=== PATIENT | female | born 1980 | race African-American/Black ===

== ENCOUNTER 2017-11-07 08:48 | Emergency (ER) | payer OTHER ==
[~2017-11-07] VITALS: Ht 165.1 cm; Wt 127.0 kg
[~2017-11-07 08:48] MED LIST: EXCEDRIN CAPLE1 EACH PO; IBUPROFEN 600600 M1 PO
[2017-11-07] MEDS ORDERED: NORCO 5-325 TA1 EACH PO (09:36)
[2017-11-07] MEDS ORDERED: IBUPROFEN 600600 M1 PO (09:36)
[2017-11-07 09:56] VITALS: BP 135/75
[2018-03-27] MEDS ORDERED: NEURONTIN600 MG PO (21:06)
[2018-03-27] MEDS ORDERED: NORCO 5-325 TA1 EACH PO (21:59)
[2018-03-27] MEDS ORDERED: NORFLEX100 MG PO (22:26)
== END 2017-11-07 09:57 | disposition home or self-care (01) ==
LOC: ER 08:48
DX: M25.571 Pain in right ankle and joints of right foot (principal); R51 Headache; K21.9 Gastro-esophageal reflux disease without esophagitis; W18.2XXA Fall in (into) shower or empty bathtub, initial encounter; Y93.89 Activity, other specified; Y92.89 Other specified places as the place of occurrence of the external cause; Y99.8 Other external cause status

== ENCOUNTER 2018-07-15 06:34 | Emergency (ER) | payer OTHER ==
[~2018-07-15] VITALS: Ht 165.1 cm; Wt 131.5 kg
[~2018-07-15 06:34] MED LIST changes: +NEURONTIN600 MG PO; +NORCO 5-325 TA1 EACH PO; +NORFLEX100 MG PO
[2018-07-15 07:14] LABS: ABSOLUTE NEUTROPHILS 2.3 thou/uL (1.4-8.2); BASOPHILS 0.6 % (0.0-2.0); EOSINOPHILS 2.5 % (0.0-3.0); HEMATOCRIT 34.3 % (37.0-47.0); HEMOGLOBIN 11.1 gm/dL (12.0-15.0); LYMPHOCYTES 40.3 % (24.0-44.0); MCH 24.9 pg (26.0-34.0); MCHC 32.4 g/dL (28.0-37.0); MONOCYTES 6.7 % (1.0-8.0); PLATELET COUNT 223 thou/uL (150-400); POLYS 49.9 % (36.0-66.0); RBC 4.45 mil/uL (4.20-5.00); RDW 16.1 % (10.5-14.5); WBC 4.7 thou/uL (4.0-11.0)
[2018-07-15 07:16] LABS: CALCIUM 8.9 mg/dL (8.5-10.1); CREATININE 0.8 mg/dL (0.6-1.0); POTASSIUM 3.8 mmol/L (3.5-5.1)
[2018-07-15 07:22] LABS: ALBUMIN 3.3 g/dL (3.4-5.0); DIRECT BILIRUBIN 0.1 mg/dL (<0.1-0.3); TOTAL BILIRUBIN 0.7 mg/dL (<0.1-1.0); TOTAL PROTEIN 7.3 g/dL (6.4-8.2)
[2018-07-15 08:27] LABS: URINE BILIRUBIN NEGATIVE (Negative); URINE BLOOD 3+ (Negative); URINE CLARITY CLOUDY; URINE COLOR RED; URINE GLUCOSE-RANDOM* NEGATIVE (Negative); URINE KETONES NEGATIVE (Negative); URINE LEUKOCYTES-REFLEX NEGATIVE (Negative); URINE NITRITE-REFLEX NEGATIVE (Negative); URINE PROTEIN (DIPSTICK) 2+ (Negative)
[2018-07-15 08:37] LABS: SQUAMOUS None Seen /LPF (0-3)
[2018-07-15 08:39] LABS: BACTERIA-REFLEX 1-9 Few /HPF (None Seen); CASTS None Seen /LPF (None Seen); CRYSTALS None Seen /LPF (None Seen); URINE RBC >20 Many /HPF (0-2); URINE WBC-REFLEX 0-5 Rare /HPF (0-5)
[2018-07-15] MEDS ORDERED: NORCO 5-325 TA1 EACH PO (10:33)
[2018-07-15 10:54] VITALS: BP 137/72
== END 2018-07-15 10:55 | disposition home or self-care (01) ==
LOC: ER 06:34
PROVIDERS: Emergency Medicine
DX: R31.9 Hematuria, unspecified (principal); R10.30 Lower abdominal pain, unspecified; K21.9 Gastro-esophageal reflux disease without esophagitis